=== PATIENT | male | born 1985 | race Caucasian/White ===

== ENCOUNTER 2023-10-17 15:08 | Emergency (ER) | payer SELFPAY ==
[~2023-10-17] VITALS: Ht 162.6 cm; Wt 104.5 kg
[~2023-10-17 15:08] MED LIST: ABILIFY 10MG TA10 MG PO; ATIVAN1 MG PO; BENZTROPINE2 MG PO; NO HOME MEDICATIONS; NORCO 325 MG-51 TAB PO; XOPENEX 1.1.25 MG/3 IH
[2023-10-17 15:13] VITALS: BP 146/98; PULSE 94; TEMP 99
[2023-10-17] MEDS ORDERED: diphenhydrAMINE 25 MG CAP PO ONE (17:00)
== END 2023-10-17 16:55 | disposition home or self-care (01) ==
LOC: COL.ER 15:08
DX: S30.861A Insect bite (nonvenomous) of abdominal wall, initial encounter (principal); S80.862A Insect bite (nonvenomous), left lower leg, initial encounter; S80.861A Insect bite (nonvenomous), right lower leg, initial encounter; Z87.891 Personal history of nicotine dependence; W57.XXXA Bitten or stung by nonvenomous insect and other nonvenomous arthropods, initial encounter